=== PATIENT | male | born 1935 | race Caucasian/White ===

== ENCOUNTER 2017-03-10 08:21 | Emergency (ER) | payer MEDICARE, BC, OTHER ==
[~2017-03-10] VITALS: Ht 175.2 cm; Wt 45.4 kg
[~2017-03-10 08:21] MED LIST: ACULAR 3 ML3 M1 OP; ASPIRIN ADULT L81 M1 PO; ASPIRIN81 M1; BACTRIM DS 8001 TA1 PO; CLEOCIN150 MG PO; HYDROCODONE BIT1 T11 PO; LIPITOR40 MG PO; LISINOPRIL5 MG; MEDROL DOSEPAK4 MG PO; NORCO 325 MG-51 TAB PO; OFLOXACIN OTIC5 ML OPH; PREDNISOLONE AC10 M1 OP; PRINIVIL5 MG PO
[2017-03-10 08:36] VITALS: BP 153/97
== END 2017-03-10 09:15 | disposition home or self-care (01) ==
LOC: ED 08:21
DX: S41.112A Laceration without foreign body of left upper arm, initial encounter (principal); F17.200 Nicotine dependence, unspecified, uncomplicated; Z90.89 Acquired absence of other organs; Z79.899 Other long term (current) drug therapy; Z79.82 Long term (current) use of aspirin; Z88.6 Allergy status to analgesic agent; W18.09XA Striking against other object with subsequent fall, initial encounter; Y93.89 Activity, other specified; Y92.89 Other specified places as the place of occurrence of the external cause; Y99.9 Unspecified external cause status

== ENCOUNTER → 2017-04-04 | Outpatient (CLI) | payer MEDICARE, BC, OTHER ==
[2017-04-04 08:30] LABS: BASO % 0.4 % (0.0-1.0); EOS # 0.2 10*3/uL (0.0-0.4); EOS % 4.6 % (1.0-4.0); HEMATOCRIT 41.3 % (42.0-52.0); LYMPH # 1.2 10*3/uL (1.3-4.4); LYMPH % 22.9 % (27.0-41.0); MEAN CORPUSCULAR HGB 33.6 pg (27.0-31.0); MEAN CORPUSCULAR HGB CONC 33.9 g/dl (33.0-37.0); MEAN PLATELET VOLUME 9.4 fl (9.6-12.3); MONO # 0.4 10*3/uL (0.1-1.0); NEUT # 3.4 10*3/uL (2.3-7.9); NEUT % 63.7 % (47.0-73.0); PLATELET COUNT AUTOMATED 134 10*3/uL (130-400); RED BLOOD COUNT 4.17 10*6/uL (4.50-5.90); RED CELL DISTRI WIDTH 13.6 % (0-14.5); WHITE BLOOD COUNT 5.3 10*3/uL (4.8-10.8)
== END | disposition home or self-care (01) ==
LOC: LAB 08:11
PROVIDERS: Ophthalmology
DX: I10 Essential (primary) hypertension (principal); H53.149 Visual discomfort, unspecified

== ENCOUNTER → 2017-04-20 | Outpatient (CLI) | payer MEDICARE, BC, OTHER | END | disposition home or self-care (01) | LOC: CARD 14:57 | DX: I08.3 Combined rheumatic disorders of mitral, aortic and tricuspid valves (principal); I67.2 Cerebral atherosclerosis; I77.9 Disorder of arteries and arterioles, unspecified; H34.239 Retinal artery branch occlusion, unspecified eye; Z86.79 Personal history of other diseases of the circulatory system ==

== ENCOUNTER → 2017-04-24 | Outpatient (CLI) | payer MEDICARE, BC, OTHER | END | disposition home or self-care (01) | LOC: US 10:00 | DX: I63.59 Cerebral infarction due to unspecified occlusion or stenosis of other cerebral artery (principal); I67.2 Cerebral atherosclerosis; I77.9 Disorder of arteries and arterioles, unspecified; H34.239 Retinal artery branch occlusion, unspecified eye; Z86.79 Personal history of other diseases of the circulatory system ==

== ENCOUNTER 2017-12-31 13:16 | Emergency (ER) | payer MEDICARE, BC, OTHER ==
[~2017-12-31] VITALS: Wt 49.9 kg
[2017-12-31] MEDS ORDERED: LISINOPRIL10 M1 PO (13:25)
[2017-12-31 14:11] LABS: HEMATOCRIT 38.5 % (42.0-52.0); HEMOGLOBIN 12.5 g/dl (14.0-18.0); MEAN CELL VOLUME 107.5 fl (80.0-94.0); MEAN CORPUSCULAR HGB 34.9 pg (27.0-31.0); MEAN CORPUSCULAR HGB CONC 32.5 g/dl (33.0-37.0); MEAN PLATELET VOLUME 9.7 fl (9.6-12.3); NUCLEATED RED BLOOD CELL 0.1 10*3/uL (0.0-0.0); NUCLEATED RED BLOOD CELL 0.6 % (0.0-0.0); PLATELET COUNT AUTOMATED 127 10*3/uL (130-400); RED BLOOD COUNT 3.58 10*6/uL (4.50-5.90); RED CELL DISTRI WIDTH 13.3 % (0-14.5); WHITE BLOOD COUNT 9.8 10*3/uL (4.8-10.8)
[2017-12-31 14:26] LABS: ALBUMIN 3.6 gm/dl (3.1-4.5); ALKALINE PHOSPHATASE 69 U/L (45-117); BUN 28 mg/dl (7-24); CHLORIDE 97 mmol/L (98-107); CREATININE 1.29 mg/dL (0.70-1.30); POTASSIUM 3.5 mmol/L (3.5-5.1); SGOT/AST 39 IU/L (3-35); SGPT/ALT 17 U/L (12-78); SODIUM 138 mmol/L (136-145); TOTAL PROTEIN 7.3 gm/dL (6.4-8.2)
[2017-12-31 14:34] LABS: TOTAL CELLS COUNTED 100 #CELLS
[2017-12-31 14:35] LABS: PLATELET SUFFICIENCY LOW (NORMAL)
[2017-12-31 14:50] VITALS: BP 136/73
== END 2017-12-31 16:46 | disposition left against medical advice (07) ==
LOC: ED 13:16
PROVIDERS: Emergency Medicine
DX: E16.2 Hypoglycemia, unspecified (principal); F17.200 Nicotine dependence, unspecified, uncomplicated; I25.10 Atherosclerotic heart disease of native coronary artery without angina pectoris; Z95.5 Presence of coronary angioplasty implant and graft; Z79.899 Other long term (current) drug therapy; Z79.82 Long term (current) use of aspirin; Z88.6 Allergy status to analgesic agent; Z88.8 Allergy status to other drugs, medicaments and biological substances

== ENCOUNTER 2018-08-05 20:47 | Emergency (ER) | payer MEDICARE, BC, OTHER ==
[~2018-08-05] VITALS: Wt 47.6 kg
--- NOTE | ~2018-08-05 | EKG ---
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
[~2018-08-05 20:47] MED LIST changes: +LISINOPRIL10 M1 PO
[2018-08-05 21:21] LABS: BASO % 0.1 % (0.0-1.0); HEMATOCRIT 22.5 % (42.0-52.0); HEMOGLOBIN 7.4 g/dl (14.0-18.0); LYMPH # 0.6 10*3/uL (1.3-4.4); LYMPH % 5.8 % (27.0-41.0); MEAN CELL VOLUME 102.7 fl (80.0-94.0); MEAN CORPUSCULAR HGB 33.8 pg (27.0-31.0); MEAN CORPUSCULAR HGB CONC 32.9 g/dl (33.0-37.0); MEAN PLATELET VOLUME 12.6 fl (9.6-12.3); MONO # 0.6 10*3/uL (0.1-1.0); MONO % 6.6 % (3.0-9.0); NEUT # 8.2 10*3/uL (2.3-7.9); NUCLEATED RED BLOOD CELL 0.1 10*3/uL (0.0-0.0); PLATELET COUNT AUTOMATED 128 10*3/uL (130-400); RED BLOOD COUNT 2.19 10*6/uL (4.50-5.90); RED CELL DISTRI WIDTH 15.4 % (0-14.5); WHITE BLOOD COUNT 9.4 10*3/uL (4.8-10.8)
[2018-08-05 21:37] LABS: ACT PARTIAL THROMBO TIME 55.9 SECONDS (20.8-31.5)
[2018-08-05] MEDS ORDERED: PRAD75 PO (21:37)
[2018-08-05] MEDS ORDERED: DILTIAZEM30 MG PO (21:37)
[2018-08-05 21:38] LABS: ALBUMIN 3.2 gm/dl (3.1-4.5); CREATININE 1.74 mg/dL (0.70-1.30); INTERNATIONAL NORM RATIO 4.8 (2.0-3.5); POTASSIUM 4.2 mmol/L (3.5-5.1); TOTAL PROTEIN 6.6 gm/dL (6.4-8.2)
[2018-08-05 21:49] LABS: TROPONIN I 0.251 ng/ml (<0.045)
[2018-08-05 23:23] LABS: BILIRUBIN NEGATIVE (NEGATIVE); BLOOD 3+ (NEGATIVE); CLARITY SL CLOUDY (CLEAR); COLOR YELLOW (YELLOW); GLUCOSE NEGATIVE (NEGATIVE); KETONE NEGATIVE (NEGATIVE); LEUKO ESTERASE NEGATIVE (NEGATIVE); NITRITE NEGATIVE (NEGATIVE); PH 5.5 (5.0-9.0); UROBILINOGEN 0.2 E.U./dl (0.2-1.0)
[2018-08-05 23:31] LABS: WBC 0-2 wbc/hpf (0-5)
[2018-08-06 00:10] VITALS: BP 128/78
[2018-09-16] MEDS ORDERED: TYLENOL325 M1 PO (16:19)
== END 2018-08-06 02:08 | disposition short-term general hospital (02) ==
LOC: ED 20:47
PROVIDERS: Student in an Organized Health Care Education/Training Program
DX: N17.9 Acute kidney failure, unspecified (principal); I48.91 Unspecified atrial fibrillation; K92.2 Gastrointestinal hemorrhage, unspecified; I47.2 Ventricular tachycardia; I25.10 Atherosclerotic heart disease of native coronary artery without angina pectoris; F17.200 Nicotine dependence, unspecified, uncomplicated; Z79.01 Long term (current) use of anticoagulants; Z88.8 Allergy status to other drugs, medicaments and biological substances; Z98.890 Other specified postprocedural states; Z79.82 Long term (current) use of aspirin; Z79.899 Other long term (current) drug therapy

== ENCOUNTER 2018-09-13 13:10 | Emergency (ER) | payer MEDICARE, BC, OTHER ==
[~2018-09-13] VITALS: Ht 177.8 cm; Wt 48.5 kg
--- NOTE | ~2018-09-13 | EKG ---
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: SS RESP : 1935 Requested By: CELENA CONDE Order Number: [id number] Reading MD: Angel Cook MD Measurements Intervals [place] Rate: 61 P: 48 IL: 236 QRS: 30 QRSD: 93 T: 101 QT: 424 QTc: 427 Interpretive Statements Sinus rhythm Prolonged IL interval Low voltage, extremity leads Nonspecific repol abnormality, diffuse leads Compared to ECG 08/05/2018 21:11:43 First degree AV block now present Atrial fibrillation no longer present Ventricular premature complex(es) no longer present Electronically Signed On 09-13-2018 17:52:17 PST by Angel Cook MD CM:EKGRPT:ELECTROCARDIOGRAM REPORT [id number] CELENA CALDERON DRAFT REPORT CELENA CONDE DO
[~2018-09-13 13:10] MED LIST changes: +DILTIAZEM30 MG PO; +PRAD75 PO
[2018-09-13] MEDS ORDERED: AMIODARONE HYD200 MG PO (13:20)
[2018-09-13] MEDS ORDERED: COREG3.125 MG PO (13:21)
[2018-09-13] MEDS ORDERED: FERROUS SULFAT324 M2 PO (13:21)
[2018-09-13] MEDS ORDERED: ASPIRIN CHEWABL81 MG PO (13:21)
[2018-09-13] MEDS ORDERED: Synthroid,Levo25 MCG PO (13:22)
[2018-09-13] MEDS ORDERED: FUROSEMIDE40 MG PO (13:22)
[2018-09-13] MEDS ORDERED: MULTIPLE VITAM1 EACH PO (13:23)
[2018-09-13] MEDS ORDERED: LISINOPRIL2.5 MG PO (13:23)
[2018-09-13] MEDS ORDERED: STIOLTO RESPIMAT4 GM IH (13:24)
[2018-09-13] MEDS ORDERED: PHOSPHA 250 NE250 MG PO (13:25)
[2018-09-13] MEDS ORDERED: POTASSIUM CHLO20 ME4 PO (13:25)
[2018-09-13] MEDS ORDERED: PANTOPRAZOLE SO40 MG PO (13:25)
[2018-09-13 14:30] LABS: BASO % 0.8 % (0.0-1.0); EOS # 0.2 10*3/uL (0.0-0.4); EOS % 3.8 % (1.0-4.0); HEMATOCRIT 30.1 % (42.0-52.0); HEMOGLOBIN 9.9 g/dl (14.0-18.0); LYMPH # 0.6 10*3/uL (1.3-4.4); LYMPH % 12.1 % (27.0-41.0); MEAN CORPUSCULAR HGB 33.6 pg (27.0-31.0); MEAN CORPUSCULAR HGB CONC 32.9 g/dl (33.0-37.0); MEAN PLATELET VOLUME 9.3 fl (9.6-12.3); MONO # 0.3 10*3/uL (0.1-1.0); MONO % 6.9 % (3.0-9.0); NEUT # 3.7 10*3/uL (2.3-7.9); NEUT % 75.2 % (47.0-73.0); PLATELET COUNT AUTOMATED 154 10*3/uL (130-400); RED BLOOD COUNT 2.95 10*6/uL (4.50-5.90); RED CELL DISTRI WIDTH 16.6 % (0-14.5); WHITE BLOOD COUNT 4.9 10*3/uL (4.8-10.8)
[2018-09-13 14:48] LABS: CREATININE 2.9 mg/dL (0.70-1.30); POTASSIUM 4.9 mmol/L (3.5-5.1); TROPONIN I 0.021 ng/ml (<0.045)
[2018-09-13 15:08] LABS: BILIRUBIN NEGATIVE (NEGATIVE); BLOOD NEGATIVE (NEGATIVE); CLARITY CLEAR (CLEAR); COLOR YELLOW (YELLOW); GLUCOSE NEGATIVE (NEGATIVE); KETONE NEGATIVE (NEGATIVE); LEUKO ESTERASE NEGATIVE (NEGATIVE); NITRITE NEGATIVE (NEGATIVE); UROBILINOGEN 0.2 E.U./dl (0.2-1.0)
[2018-09-13 17:05] VITALS: BP 102/52
[2018-09-16] MEDS ORDERED: TYLENOL325 M1 PO (16:19)
== END 2018-09-13 16:45 | disposition home or self-care (01) ==
LOC: ED 13:10
PROVIDERS: Emergency Medicine; Internal Medicine
DX: R27.0 Ataxia, unspecified (principal); E86.0 Dehydration; I48.91 Unspecified atrial fibrillation; I25.10 Atherosclerotic heart disease of native coronary artery without angina pectoris; F17.200 Nicotine dependence, unspecified, uncomplicated; Z88.6 Allergy status to analgesic agent; Z79.899 Other long term (current) drug therapy; Z79.82 Long term (current) use of aspirin

== ENCOUNTER → 2018-09-27 | Outpatient (CLI) | payer MEDICARE, BC, OTHER ==
[~2018-09-27] MED LIST changes: +AMIODARONE HYD200 MG PO; +ASPIRIN CHEWABL81 MG PO; +COREG3.125 MG PO; +FERROUS SULFAT324 M2 PO; +FUROSEMIDE40 MG PO; +LISINOPRIL2.5 MG PO; +MULTIPLE VITAM1 EACH PO; +PANTOPRAZOLE SO40 MG PO; +PHOSPHA 250 NE250 MG PO; +POTASSIUM CHLO20 ME4 PO; +STIOLTO RESPIMAT4 GM IH; +Synthroid,Levo25 MCG PO; +TYLENOL325 M1 PO
== END | disposition home or self-care (01) ==
LOC: WOUNDCARE 09-26 11:41
DX: L89.322 Pressure ulcer of left buttock, stage 2 (principal); I50.9 Heart failure, unspecified; I25.10 Atherosclerotic heart disease of native coronary artery without angina pectoris; I48.91 Unspecified atrial fibrillation; K21.9 Gastro-esophageal reflux disease without esophagitis; E03.9 Hypothyroidism, unspecified; E46 Unspecified protein-calorie malnutrition; Z68.1 Body mass index [BMI] 19.9 or less, adult; Z87.891 Personal history of nicotine dependence

== ENCOUNTER → 2018-10-11 | Outpatient (CLI) | payer MEDICARE, BC, OTHER | END | disposition home or self-care (01) | DX: L89.152 Pressure ulcer of sacral region, stage 2 (principal); L89.322 Pressure ulcer of left buttock, stage 2; I50.9 Heart failure, unspecified; I25.10 Atherosclerotic heart disease of native coronary artery without angina pectoris; K21.9 Gastro-esophageal reflux disease without esophagitis; E03.9 Hypothyroidism, unspecified; Z87.891 Personal history of nicotine dependence ==